=== PATIENT | female | born 2000 | race Caucasian/White ===

== ENCOUNTER 2021-10-31 12:45 | Outpatient (CLI) | payer OTHER, SELFPAY ==
[2021-10-31] VITALS (19 sets, daily range): BP systolic 111–138; BP diastolic 58–87; PULSE 77–112; RESP 16; TEMP 36.8
[2021-10-31 13:27] LABS: Nitrazine Paper, PH Negative
[2021-10-31] MEDS: lactated ringers 1,000 ML 999 ML IV (13:36)
[2021-10-31 13:37] LABS: Amphetamines Screen Urine Negative (Negative); Barbiturates Screen Urine Negative (Negative); Benzodiazepines Screen Urine Negative (Negative); Cocaine Screen Urine Negative (Negative); Opiate Screen Urine Negative (Negative); PCP Screen Urine Negative (Negative); THC Screen Urine Negative (Negative)
[2021-10-31] MEDS: NIFEdipine 10 mg Capsule PO ×2 (14:31→16:23)
== END 2021-10-31 17:10 | disposition home or self-care (01) ==
LOC: OPOB 12:55 → OBGYN 12:56
PROVIDERS: Visit Provider Obstetrics & Gynecology
DX: O26.899 Other specified pregnancy related conditions, unspecified trimester (principal); Z3A.00 Weeks of gestation of pregnancy not specified; R10.9 Unspecified abdominal pain; N89.8 Other specified noninflammatory disorders of vagina
CPT/HCPCS: 59025; 80306; 83986; 99211

== ENCOUNTER 2021-11-15 12:10 | Outpatient (CLI) | payer OTHER, SELFPAY ==
[2021-11-15] VITALS (10 sets, daily range): BP systolic 111–136; BP diastolic 66–104; PULSE 86–115; RESP 16; TEMP 36.8; BMI 27.2
[2021-11-15 13:35] LABS: Amphetamines Screen Urine Negative (Negative); Barbiturates Screen Urine Negative (Negative); Benzodiazepines Screen Urine Negative (Negative); Cocaine Screen Urine Negative (Negative); Opiate Screen Urine Negative (Negative); PCP Screen Urine Negative (Negative); THC Screen Urine Negative (Negative)
[2021-11-15 13:59] LABS: Bilirubin Urine Neg (Negative); Blood Urine Neg (Negative); Glucose Urine UA Norm (Normal); Ketones Urine Negative (Negative); Leukocyte Esterase Urine Negative (Negative); Nitrate Urine Negative (Negative); Protein Urine Neg (Negative); Specific Gravity, Urine 1.015 (1.005-1.030); Urine Appearance Clear (CLEAR); Urine Color Yellow (Yellow); Urobilinogen Urine Neg (Negative); pH Urine 7 (5-7)
[2021-11-15 14:14] LABS: Add Urine Culture? No; Squamous Epithelial Cell Urine 0-4 /hpf (0-5)
== END 2021-11-15 14:25 | disposition home or self-care (01) ==
LOC: OPOB 12:12 → OBGYN 12:12
PROVIDERS: Visit Provider Family Medicine
DX: O26.899 Other specified pregnancy related conditions, unspecified trimester (principal); Z3A.00 Weeks of gestation of pregnancy not specified; R10.9 Unspecified abdominal pain
CPT/HCPCS: 59025; 80306; 81001; 99211

== ENCOUNTER 2021-11-21 13:56 | Outpatient (CLI) | payer OTHER, SELFPAY ==
[2021-11-21 14:29] VITALS: BP 110/74; PULSE 112
[2021-11-21 14:50] VITALS: BP 122/72; PULSE 86
[2021-11-21 15:09] VITALS: BP 110/68; PULSE 83
[2021-11-21 15:31] VITALS: BP 118/68; PULSE 89
[2021-11-21 15:46] VITALS: BP 118/68; PULSE 89; RESP 18; TEMP 35.9
== END 2021-11-21 15:40 | disposition home or self-care (01) ==
LOC: OPOB 14:06 → OBGYN 14:17
PROVIDERS: Visit Provider Family Medicine
DX: O26.899 Other specified pregnancy related conditions, unspecified trimester (principal); Z3A.00 Weeks of gestation of pregnancy not specified; R10.9 Unspecified abdominal pain
CPT/HCPCS: 59025; 87081; 99211

== ENCOUNTER 2021-11-24 20:37 | Outpatient (CLI) | payer OTHER, SELFPAY ==
[2021-11-24] VITALS (14 sets, daily range): PULSE 88–104; RESP 14; O2SAT 97–98
[2021-11-24 22:00] LABS: Actim Prom Negative
[2021-11-24 22:06] LABS: Amphetamines Screen Urine Negative (Negative); Barbiturates Screen Urine Negative (Negative); Benzodiazepines Screen Urine Negative (Negative); Cocaine Screen Urine Negative (Negative); Opiate Screen Urine Negative (Negative); PCP Screen Urine Negative (Negative); THC Screen Urine Negative (Negative)
== END 2021-11-24 22:25 | disposition home or self-care (01) ==
LOC: OPOB 21:03 → OBGYN 21:04
PROVIDERS: Visit Provider Obstetrics & Gynecology
DX: O26.899 Other specified pregnancy related conditions, unspecified trimester (principal); Z3A.00 Weeks of gestation of pregnancy not specified; R10.9 Unspecified abdominal pain
CPT/HCPCS: 59025; 80306; 84112; 99211

== ENCOUNTER 2021-11-29 17:10 | Outpatient (CLI) | payer OTHER, SELFPAY ==
[2021-11-29 17:25] VITALS: BP 132/78; PULSE 111
[2021-11-29 17:41] VITALS: BP 134/82; PULSE 97
[2021-11-29 17:57] VITALS: BP 108/72; PULSE 102
[2021-11-29 18:05] VITALS: RESP 16
[2021-11-29 18:57] LABS: Nitrazine Paper, PH Negative
== END 2021-11-29 18:15 | disposition home or self-care (01) ==
LOC: OPOB 17:14 → OBGYN 17:15
PROVIDERS: Visit Provider Family Medicine
DX: O26.899 Other specified pregnancy related conditions, unspecified trimester (principal); Z3A.00 Weeks of gestation of pregnancy not specified; R10.2 Pelvic and perineal pain
CPT/HCPCS: 83986

== ENCOUNTER 2021-11-30 08:05 | Inpatient (IN) | payer OTHER, SELFPAY ==
[2021-11-30] VITALS (57 sets, daily range): BP systolic 107–146; BP diastolic 55–101; PULSE 64–98; RESP 16–18; TEMP 35.8–36.8; O2SAT 90–100; BMI 29.2
[2021-11-30 09:27] LABS: Basophils # 0.1 10^3/uL (0.0-0.1); Basophils % 0.4 %; Eosinophils # 0.3 10^3/uL (0.0-0.8); Eosinophils % 1.2 %; Hematocrit 35.1 % (37.0-47.0); Hemoglobin 11.1 g/dL (11.5-15.3); Lymphocytes # 5.3 10^3/uL (0.8-4.8); Lymphocytes % 20.7 %; Mean Corpuscular HGB Conc 31.6 g/dL (30.0-36.0); Mean Corpuscular Hemoglobin 28.2 pg (28.0-34.0); Mean Corpuscular Volume 89.1 fl (81-99); Mean Platelet Volume 11.2 fL (7.4-10.4); Monocytes # 1.8 10^3/uL (0.2-0.9); Neutrophils # 17.68 10^3/uL (1.8-7.7); Neutrophils % 69.2 %; Nucleated Red Blood Cells % 0 %; Platelet Count 367 10^3/cmm (130-400); Red Blood Count 3.94 10^6/uL (4.1-5.3); Red Cell Distribution Width 14.2 % (12.1-15.1); White Blood Count 25.5 10^3/uL (4.0-10.0)
[2021-11-30] MEDS: lactated ringers 1,000 ML 999 ML IV (10:32)
--- NOTE | 2021-11-30 11:35 | ANES.PREANE2 ---
Pre-Anesthetic Assessment Height/Weight: Height 1.45 m Temp Pulse BP Pulse Ox 97.3 F L 84 137/83 100 11/30/21 09:43 11/30/21 11:46 11/30/21 11:46 11/30/21 11:46 Preop Diagnosis: IUP labor epidrual Was Beta Duglas taken within 24 hours: N/A Was Clonidine taken within 24 hours: N/A Last intake: 11/29 @2200- meal currently clears Social Tobacco and No alcohol 1 cigs per day Exam alert and oriented x 3 Airway Submandibular: within normal limits Cervical ROM: within normal limits Mallampati: Class I Dentition: full Comments: Comments: tongue ring History/ROS No significant history except as noted Pulmonary Asthma CV/HEM None reported None reported Hepatic None reported GI Gastroesophageal Reflux Disease Metabolic None reported Musc/skel None reported Neuropsych None reported Anesthetic Plan ASA status: 2 Anesthesia: Anesthesia Evaluation and Regional (specify below) (epidural) Risk of > 500 ml blood loss (7ml/kg in children): Yes, adequate IV access and fluids planned Medications/Allergies Home Medications Medication Instructions Recorded Confirmed Last Taken Type ferrous sulfate 325 mg (65 mg 325 mg PO BID 10/31/21 11/25/21 10/29/21 History iron) tablet (iron) 1 tab [id number] 1 mg 1 tab PO DAILY 10/31/21 10/31/21 11/24/21 08:00 History tablet Allergies Allergy/AdvReac Type Severity Reaction Status Date / Time Sulfa (Sulfonamide Allergy ALGY-Anaphy Verified 10/31/21 16:16 Antibiotics) laxis Current Medications Generic Name Dose Route Start Last Admin Trade Name Freq PRN Reason Stop Dose Admin Lactated Ringer's 1,000 mls @ 999 mls/hr 11/30/21 09:46 11/30/21 10:32 Lactated Ringers IV 999 mls/hr .Q1H1M PRN Administration See label comments Data Anesthesia : 11/30/21 08:50 Short CBC 11/30/21 Range/Units 08:50 WBC 25.5 H (4.0-10.0) 10^3/uL Hgb 11.1 L (11.5-15.3) g/dL Hct 35.1 L (37.0-47.0) % MCV 89.1 (81-99) fl Plt Count 367 (130-400) 10^3/cmm Neut % (Auto) 69.2 % Neut # (Auto) 17.68 H (1.8-7.7) 10^3/uL Cardiac Studies: No Data to Display
--- NOTE | 2021-11-30 11:52 | ANES.PROC ---
Anesthesia Procedures Procedure/Date: 11/30/21 epidural Epidural: Time Out Performed: Yes Consents Signed: Procedure Consent Consent: from patient, risks and benefits reviewed and patient agrees to proceed Lumbar Level: L3-L4 Epidural position: sitting Epidural procedure: sterile prep of area, 1% lidocaine to numb the area, 18 g needle, negative for paresthesia passed, test dose given, 1.5% xylocaine 1:200k epi, placed PCEA, no systemic response, sterile dressing applied, L.U.D. no apparent complications and 0.2% Ropiavacaine @ mls/hr (9) Additional Comments: CHERELLE at 5.5 taped at 13 at skin bolus of remaining 1% lido (2ml) + remaining test dose (2ml) given after negative test dose.
[2021-11-30 12:27] LABS: Bilirubin Urine Neg (Negative); Blood Urine 2+ (Negative); Glucose Urine UA Norm (Normal); Ketones Urine Negative (Negative); Leukocyte Esterase Urine Negative (Negative); Nitrate Urine Negative (Negative); Protein Urine Neg (Negative); Urine Appearance Clear (CLEAR); Urine Color Yellow (Yellow); Urobilinogen Urine Norm (Negative); pH Urine 7 (5-7)
[2021-11-30 12:28] LABS: Add Urine Culture? No; RBC Urine 0-4 /hpf (0-2); Squamous Epithelial Cell Urine 0-4 /hpf (0-5); WBC Urine 0-4 /hpf (0-5)
[2021-11-30] MEDS: dextrose 5%-lactated ringers 1,000 ML 125 ML IV (13:39)
[2021-11-30] MEDS: oxytocin 30 UNIT/500 ML BAG 600 UNIT IV (13:40)
--- NOTE | 2021-11-30 15:01 | PC.NURSE ---
[address] WHITAKER THAT I NEEDED EPIDURAL, SHE STATED THAT SHE WOULD SEND SOMEONE DOWN. 1130 THIS MOLDER APPRENTICE CALLED DR. DENNEY BACK AND SHE STATED THAT DIANNE SHOULD BE DOWN THERE, SHE WALKED INTO OB WHILE I WAS ON THE PHONE WITH HER.
--- NOTE | 2021-11-30 15:15 | P.HP_ITS ---
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 Currently not receiving care. She had recently moved to [facility] [place]. She refers she was receiving care, but no provider will except her when she came at 37 weeks. Previous complicated by premature delivery at 36 weeks. She denies any complications during this . Present Details : 6 Para: 1 Labs Rubella: Immune RPR: Negative GBS: Negative Review of Systems Narrative: movement: no Const: Denies: fever(s) or chills Card: Denies: chest pain, palpitations, irregular heart rhythm or syncope Resp: Denies: dyspnea GI: Denies: abdominal pain, nausea or vomiting : Reports: other (Contractions); Denies: flank pain, dysuria, urinary frequency or urinary urgency Musc: Denies: back pain or extremity swelling Skin/Breast: Denies: rash, pruritus, breast pain, nipple discharge or breast mass Neuro: Denies: headache(s), difficulty walking, dizziness or restless legs Psych: Denies: anxiety, depression or mood swings Endo: Denies: polyuria, tired all the time, cold intolerance or heat intolerance Tomasz/Lymph: Denies: easy bruising, easy bleeding, petechiae or purpura All/Imm: Denies: urticaria Medications/Allergies Home Medications Medication Instructions Recorded Confirmed Last Taken Type ferrous sulfate 325 mg (65 mg 325 mg PO BID 10/31/21 11/25/21 11/28/21 09:30 History iron) tablet (iron) [id number] 1 mg 1 tab PO DAILY 10/31/21 10/31/21 11/28/21 09:30 History tablet Allergies Allergy/AdvReac Type Severity Reaction Status Date / Time Sulfa (Sulfonamide Allergy ALGY-Anaphy Verified 10/31/21 16:16 Antibiotics) laxis Vitals/I&O/Wt Last Vital Signs Temp 96.4 F L 11/30/21 11:50 Pulse 81 11/30/21 14:59 Resp 18 11/30/21 09:03 BP 137/64 11/30/21 14:59 Pulse Ox 100 11/30/21 12:46 Weight last 48 hrs Weight 61.235 kg Weight 61.235 kg Physical Exam Narrative: GA: Alert and oriented ?3. Lungs: Clear to auscultation bilaterally. Heart: Regular rhythm and rate. Abdomen: Gravid, full the height equals dates, nontender. REGULATORY PROCESS MANAGER: SVE; dilation: 9-10 cm, effacement: 100%, station: -3, presentation: vx, membranes: SROM meconium. Extremities: no edema, no cyanosis, no calves pain. heart tracing: Basal rate: 140's bpm, Variability: moderate, Accelerations: present, Decelerations: absent, Contraction: q5min. Urinary Catheter Management: Jauregui: Cath Placed During This Visit: yes Urinary Catheter Date of Insertion: 11/30/21 Urinary Catheter Time of Insertion: 11:53 Data : 12/01/21 03:30 A&P Assessment and plan (1) Term : Ms. Jones 21-year-old female G2, P1 with an estimated gestational age at 39 weeks, came to labor and delivery with chief complaint of contractions. Upon examination she was noted to being active labor she was admitted. heart tracing category 1. During cervical examination bulging membrane rupture showing meconium. scalp stimulation good. Status: Acute (2) Active labor at term: Status: Acute Attestations Medical Necessity Statement*: In my professional opinion per admitting diagnosis Coding Level of Care Code Acute Truck Shop Mechanic for Lita Fwpo Diagnoses Term Z34.90 Active labor at term
--- NOTE | 2021-11-30 15:42 | PM.DELIVERY ---
Delivery Note: Date of delivery: November 30, 2021 Pre-delivery diagnoses: Term Post-delivery diagnoses: Term delivered Procedure: Vacuum assisted vaginal delivery Delivering Physician: Eulogio Landeros MD Estimated blood loss (mL): 300 Delivery: This is a 21-year-old woman who was since 39 weeks [] days when she was admitted in active labor to labor and delivery. When she was admitted, her cervix was 5-6 cm dilated with 80% effacement. The baby had a -3 station. She had no regular contractions. heart tones were 120s and reactive. Progressed quite rapidly. She had spontaneous rupture of membranes with meconium during examination. With descent of head, there were some variable decelerations. The baby was at a +1 station when the patient began pushing. During pushing, the heart tones were in the 80s slow recovery between contractions. Because of this, I recommended a vacuum delivery for the baby. The patient agreed. Pt. Noted to have epidural anesthesia. The patient was noted to be complete and pushing, so was placed in the dorsal lithotomy position, prepped and draped in the usual sterile fashion for a vaginal delivery. Pt. Noted to have epidural anesthesia. Decision was made to apply the Kiwi vacuum @ 39 weeks for the above indications. The mother was informed and asked for her consent for application of the vaccum. A osorio had been used to insure the bladder was emptied. Adequate anesthesia was confirmed. The baby's head was confirmed to be in the right occiput anterior presentation. The edges of the cup of the Kiwi vacuum was placed approximately 3cm from the anterior fontanelle, and just at the edge of the posterior fontanelle. The center of the cup was placed over the flexion point. The edges of the cup were swept with a finger to ensure that no maternal tissues were entrapped. After correct placement of the cup was confirmed, vacuum pressure was raised to 500-600 mmHg. Gentle traction along the axis of the pelvic curve down then up, was applied in concert with maternal pushing. 1 # applications. 0# pop-offs. A modified Ritgen maneuver was used to stabilize the head. After head delivered, the vacuum pressure released and was taken off the baby's head the heart tones remained in the, at this time, 90s to 100s.. At 1530 the patient delivered a viable at 39 weeks weighing 2670 g with scores of 8 and 9 at one and five minutes, respectively. The vertex was delivered vacuum assisted over intact perineum. The patient was asked to push and the head delivered in the GEOVANI position, over an intact perineum. A nuchal cord was checked and none noted. No additional maneuvers were required to deliver the anterior shoulder. The anterior shoulder delivered easily and the posterior shoulder followed. The remainder of the infant was easily delivered and the oropharynx and nasopharynx was again bulb suctioned. The infant was noted to have spontaneous cry and spontaneous movement of all four extremities. The cord was clamped x 2 and cut and noted to have 2 arteries and one vein. The was passed to the mother's abdomen where nursing personnel were in attendance. The placenta delivered intact spontaneously and the uterus was explored. Pitocin 20 units in 1L LR was initiated. Examination of the cervix, vagina and perineal areas were inspected for lacerations and did not reveal any lacerations. A vaginal pack was then placed. Examination of the perineum showed no lacerations. The vaginal pack was then removed. The patient tolerated this procedure well, and recovered in their LDR room with her infant. All sponge and needle counts were correct. Post-Delivery Status: Good and stable Coding Level of Care Code Acute Kitchen Hand for Chg Farrukh
[2021-11-30 18:53] LABS: Amphetamines Screen Urine Negative (Negative); Barbiturates Screen Urine Negative (Negative); Benzodiazepines Screen Urine Negative (Negative); Cocaine Screen Urine Negative (Negative); Opiate Screen Urine Negative (Negative); PCP Screen Urine Negative (Negative); THC Screen Urine Negative (Negative)
[2021-11-30] MEDS: ibuprofen 800 mg tablet PO (22:33)
[2021-12-01 04:50] LABS: Basophils # 0.1 10^3/uL (0.0-0.1); Basophils % 0.2 %; Eosinophils # 0.2 10^3/uL (0.0-0.8); Eosinophils % 0.6 %; Hematocrit 31.7 % (37.0-47.0); Hemoglobin 10.2 g/dL (11.5-15.3); Lymphocytes # 5.6 10^3/uL (0.8-4.8); Lymphocytes % 23.3 %; Mean Corpuscular HGB Conc 32.2 g/dL (30.0-36.0); Mean Corpuscular Hemoglobin 28.3 pg (28.0-34.0); Mean Corpuscular Volume 88.1 fl (81-99); Mean Platelet Volume 11.3 fL (7.4-10.4); Monocytes # 1.5 10^3/uL (0.2-0.9); Monocytes % 6.2 %; Neutrophils % 68.7 %; Nucleated Red Blood Cells % 0 %; Platelet Count 316 10^3/cmm (130-400); Red Cell Distribution Width 14.1 % (12.1-15.1); White Blood Count 24.2 10^3/uL (4.0-10.0)
--- NOTE | 2021-12-01 07:23 | ANE.PACU2 ---
Inpatient post-anesthesia follow up: Airway intact: Yes Vital signs: Temperature 98.2 F Pulse Rate 67 Respiratory Rate 17 Blood Pressure 146/90 Pulse Oximetry 100 Oxygen Delivery Me thod Room Air Oxygen Flow Rate Fraction of Inspir ed Oxygen Hydration adequate: Yes Nausea and vomiting: No Pain level: 2 Mental status: Baseline
[2021-12-01] MEDS: prenatal vitamin Capsule 1 CAP PO (08:52)
[2021-12-01] MEDS: docusate sodium 100 mg Capsule PO (08:52)
[2021-12-01] MEDS: ibuprofen 800 mg tablet PO (08:52)
[2021-12-01] MEDS: HYDROcodone-acetaminophen 5-325 mg Tablet PO (08:59)
[2021-12-01 10:45] VITALS: BP 121/80; PULSE 71; RESP 16; TEMP 36.6; O2SAT 98
--- NOTE | 2021-12-01 15:07 | PC.NURSE ---
abruptly left home in [place], [place] and left 4 year old daughter there with her mom, has not been back there. left all belongings, does not have her own personal documents such as: insurance card. needs continues education on how to feed for infant. concerns if she will take to follow up appointments and unsure of her housing situation.
--- NOTE | 2021-12-01 16:32 | PM.OBGYDC ---
Discharge Providers DIRECTOR INDUSTRIAL NURSING Date of Admission: 11/30/21 08:05 Date of Discharge: 12/01/21 Attending Provider at Admission: Eulogio Landeros MD Attending Provider at Discharge: Eulogio Landeros MD Diagnoses at Discharge Discharge Diagnosis (1) Term : Status: Acute (2) Active labor at term: Status: Acute Reason for Visit Reason for Visit: contractions Hospital Course Hospital Course Cat Jones is a 21 year old female G2, P1 with an estimated gestational age at 39 weeks with poor care. Came to labor and delivery complaining of contractions, she was found to be in active labor and she progressed to have a vacuum assisted vaginal delivery. observation was uneventful. She is afebrile and hemodynamically stable day 1. Tolerating diet well. Ambulating without difficulty. Adequate urine output. Information Peripartum Data: Delivery Method: Vaginal Physical Exam Narrative: GA; alert and oriented x 3 HEENT: normal Breasts: engorged Nipples - skin intact Lungs; clear to auscultation Heart: regular rhythm, no murmurs. Abd: Appropriately tender. BS+. Uterine fundus below umbilicus. No Fundal Tenderness. Perineum: normal lochia. Extremities: no edema, no cyanosis, no tenderness. Urinary Catheter Management: Jauregui: Cath Placed During This Visit: yes, but has since been removed by the nurse Reason for Continuing Indwelling Catheter: Other Urinary Catheter Date of Insertion: 11/30/21 Urinary Catheter Time of Insertion: 11:53 Date Urinary Catheter Removed: 11/30/21 Time Urinary Catheter Discontinued: 15:20 Discharge Data Studies Completed and Pending Laboratory Results WBC 24.2 10^3/uL (4.0-10.0) H 12/01/21 03:30 RBC 3.60 10^6/uL (4.1-5.3) L 12/01/21 03:30 Hgb 10.2 g/dL (11.5-15.3) L 12/01/21 03:30 Hct 31.7 % (37.0-47.0) L 12/01/21 03:30 MCV 88.1 fl (81-99) 12/01/21 03:30 MCH 28.3 pg (28.0-34.0) 12/01/21 03:30 MCHC 32.2 g/dL (30.0-36.0) 12/01/21 03:30 RDW 14.1 % (12.1-15.1) 12/01/21 03:30 Plt Count 316 10^3/cmm (130-400) 12/01/21 03:30 MPV 11.3 fL (7.4-10.4) H 12/01/21 03:30 Neut % (Auto) 68.7 % 12/01/21 03:30 Lymph % (Auto) 23.3 % 12/01/21 03:30 Bollinger % (Auto) 6.2 % 12/01/21 03:30 Eos % (Auto) 0.6 % 12/01/21 03:30 Baso % (Auto) 0.2 % 12/01/21 03:30 Neut # (Auto) 16.60 10^3/uL (1.8-7.7) H 12/01/21 03:30 Lymph # (Auto) 5.6 10^3/uL (0.8-4.8) H 12/01/21 03:30 Bollinger # (Auto) 1.5 10^3/uL (0.2-0.9) H 12/01/21 03:30 Eos # (Auto) 0.2 10^3/uL (0.0-0.8) 12/01/21 03:30 Baso # (Auto) 0.1 10^3/uL (0.0-0.1) 12/01/21 03:30 Nucleated RBC % (auto) 0 % 12/01/21 03:30 Nucleated RBCs # 0.0 /100WBC 12/01/21 03:30 Urine Color Yellow (Yellow) 11/30/21 08:50 Urine Appearance Clear (CLEAR) 11/30/21 08:50 Urine pH 7 (5-7) 11/30/21 08:50 Ur Specific [place] 1.010 (1.005-1.030) 11/30/21 08:50 Urine Protein Neg (Negative) 11/30/21 08:50 Urine Glucose (UA) Norm (Normal) 11/30/21 08:50 Urine Ketones Negative (Negative) 11/30/21 08:50 Urine Blood 2+ (Negative) H 11/30/21 08:50 Urine Nitrate Negative (Negative) 11/30/21 08:50 Urine Bilirubin Neg (Negative) 11/30/21 08:50 Urine Urobilinogen Norm mg/dL (Negative) 11/30/21 08:50 Ur Leukocyte Esterase Negative (Negative) 11/30/21 08:50 Urine RBC 0-4 /hpf (0-2) H 11/30/21 08:50 Urine WBC 0-4 /hpf (0-5) H 11/30/21 08:50 Ur Squamous Epith Cells 0-4 /hpf (0-5) H 11/30/21 08:50 Amorphous Sediment Not Reportable 11/30/21 08:50 Urine Bacteria None /hpf (NONE) 11/30/21 08:50 Urine Opiates Screen Negative ng/mL (Negative) 11/30/21 08:50 Ur Barbiturates Screen Negative ng/mL (Negative) 11/30/21 08:50 Ur Phencyclidine Scrn Negative ng/mL (Negative) 11/30/21 08:50 Ur Amphetamines Screen Negative ng/mL (Negative) 11/30/21 08:50 U Benzodiazepines Scrn Negative ng/mL (Negative) 11/30/21 08:50 Urine Cocaine Screen Negative ng/mL (Negative) 11/30/21 08:50 U Marijuana (THC) Screen Negative ng/mL (Negative) 11/30/21 08:50 Vitals Last Vital Signs Temp 97.8 F 12/01/21 10:45 Pulse 71 12/01/21 10:45 Resp 16 12/01/21 10:45 BP 121/80 12/01/21 10:45 Pulse Ox 98 12/01/21 10:45 Discharge Plan Discharge Patient Disposition: Home Condition: Stable Prescriptions: New acetaminophen 325 mg capsule 325 mg PO Q4H PRN (Reason: fever or pain) Qty: 60 0RF docusate sodium [Colace] 100 mg capsule 100 mg PO BID Qty: 60 0RF ferrous sulfate [Iron (ferrous sulfate)] 325 mg (65 mg iron) tablet 325 mg PO BID Qty: 60 0RF ibuprofen 800 mg tablet 800 mg PO TID PRN (Reason: pain) Qty: 60 0RF Continued ferrous sulfate [iron] 325 mg (65 mg iron) Tablet 325 mg PO BID 0RF 1 mg Tablet 1 tab PO DAILY 0RF Discharge Orders: Discharge Order (Routine); Ordered 12/01/21 Ordered By: Eulogio Landeros Referrals: Eulogio Landeros MD [Physician] - 6 Weeks Discharge Diet: Advance as tolerated and Usual diet Discharge Activity: Limit activity as instructed Patient Instructions: Depression (DC), Bleeding (DC), Preeclampsia and Eclampsia After Delivery (GEN), OB Discharge Report, OB Food/Drug Interaction Guide, OB Care at Home, Opioid Safety, OB Home Care, OB Vaginal Deliveries - [facility], Abnormal Bleeding Activity Restrictions/Additional Instructions: 1. Please call [facility] on next working day to make your post appointment in 6 weeks. 2. Please stay home until you come back to the clinic on first post-operative check up. 3. Please follow instructions on your medications CAREFULLY. 4. If you have abdominal incision, do not cover it unless dressing is necessary because of drainage. OK to shower, but avoid bath. Leave steri-strips until they fall off. If they are still on one week after surgery, you may remove them. 5. If you had vaginal surgery or vaginal repair, Dr. Landeros may instruct you to take SITZ bath. 6. Yellow, blood tinged odorous vaginal discharge is usually normal after hysterectomy or vaginal surgeries. 7. No sexual intercourse, tampons, or douches until you are completely released from the post-operative care. 8. Avoid constipation by eating right and maybe using some Metamucil or Milk of Magnesia. 9. All prescription refills are given during the working hours. Please do no wait till it runs out. Call the clinic at [phone] before your medication runs out. The clinic will get in touch with your doctor to prescribe medications if necessary. 10. Please remain within 40 mile radius from our hospital because emergencies do happen now and then during the post-operative period. 11. If you have stairs at home, take one step at a time slowly and minimize the number of trips. It helps to stay in one floor for the next few days. No lifting except what you can lift by one hand until you are released from the post-operative care. 12. Driving is discouraged until you are well healed. It may be 3-4 weeks before you feel strong enough to drive. You should be able to turn and look through the rear window without pain and you should be able to push the brake pedal very hard without pain before you drive. No fast rules, but SAFETY should be your primary concern. DO NOT drive if you are on sedating medications such as narcotics. 13. Call the clinic (during working hours) to make urgent appointment or go to the Emergency room, if any of the following occurs: i. Vaginal bleeding becomes heavy, more than a period. ii. Incision becomes red and sore, or drains pus. iii. Your temperature is over 100.4 or you have chill. iv. IV site becomes red and swollen (a little ``knot?? is usually OK) v. Persistent nausea and vomiting vi. Persistent constipation or diarrhea vii. Rash or allergic reaction to medications. Discharge Attestations DIRECTOR INDUSTRIAL NURSING Time Spent in Discharge Care*: greater than 30 min Coding Level of Care Code Acute Chief Payroll Clerk for Hilaryg Farrukh Diagnoses Term Z34.90 Active labor at term
[2021-12-01 19:45] VITALS: BP 123/79; PULSE 86; RESP 18; TEMP 36.9
== END 2021-12-01 19:50 | disposition home or self-care (01) | DRG 806 ==
LOC: OPOB 08:14 → OBGYN 08:14
PROVIDERS: Admitting Provider Obstetrics & Gynecology; Visit Provider Obstetrics & Gynecology
DX: O99.334 Smoking (tobacco) complicating childbirth (principal); O98.32 Other infections with a predominantly sexual mode of transmission complicating childbirth; Z37.0 Single live birth; F17.210 Nicotine dependence, cigarettes, uncomplicated; A64 Unspecified sexually transmitted disease; O77.0 Labor and delivery complicated by meconium in amniotic fluid; O76 Abnormality in fetal heart rate and rhythm complicating labor and delivery; Z3A.39 39 weeks gestation of pregnancy
CPT/HCPCS: 36415; 51702; 59025; 59409; 80306; 81001; 85025; 99211; J2795